=== PATIENT | male | born 1985 | race Caucasian/White ===

== ENCOUNTER 2016-05-28 18:56 | Emergency (ER) | payer SELFPAY ==
--- NOTE | 2016-05-28 19:43 | DIAGNOSTIC IMAGING REPORT ---
PROCEDURE: CT HEAD WITHOUT CONTRAST INDICATION: TRAUMA/INJURY TECHNIQUE: Noncontrast axial images with sagittal and coronal reformations. COMPARISON: None. FINDINGS: Sulci, ventricular system, and brain parenchyma are normal. Posterior scalp contusion. No evidence of acute intracranial process. Bilateral ethmoid and maxillary sinus disease. Mastoid are clear. IMPRESSION: 1. Posterior scalp contusion 2. No acute intracranial abnormality 3. Sinus disease 4. Findings discussed with Dr. Jordan at 07:41 p.m., [place] Standard Time
--- NOTE | 2016-05-28 20:46 | ED CLINICAL REPORT ---
Clinical Report - Physicians/Mid Levels [facility] [address] [place] [address] 05/28/2016 19:00 Patient: JONG DE JESUS Arrived- By private vehicle. Historian- patient. HISTORY OF PRESENT ILLNESS Chief Complaint: FALL and INJURY TO HEAD. The injury occurred just prior to arrival. Fell 8-10 feet off a ladder while climbing and landed on the ground. Occurred at home. The patient complains of moderate pain in the head. The patient sustained a moderate blow to the head, had brief loss of consciousness and was dazed. No neck pain or seizure. REVIEW OF SYSTEMS No numbness, dizziness, loss of vision, hearing loss or difficulty breathing. No weakness, nausea, abdominal pain, laceration or vomiting. No urinary problems. He has had a headache. All systems otherwise negative, except as recorded above. PAST HISTORY concussion. Surgeries: No history of previous surgery. Additional Surgeries: no known surgeries. Medications: Ibuprofen Oral, as needed. Allergies: No Known Drug Allergy. SOCIAL HISTORY Current every day smoker. Occasional alcohol use. History of drug use: marijuana. ADDITIONAL NOTES The nursing notes have been reviewed with agreement regarding the chief complaint, PMH and patient medications and allergies. PHYSICAL EXAM Vital Signs: 05/28/2016 19:04 BP: 147/84. HR: 82. RR: 22. O2 saturation: 100%. Temp: 97.9 F. Have been reviewed. Hypertensive. Heart rate normal. Tachypneic. Temperature normal. Oxygen saturation normal. Appearance: C-collar in place. Alert. Oriented X3. No acute distress. Head: No Carcamo's sign or raccoon eyes. Vertex: mild tenderness and swelling. No laceration. Eyes: Pupils equal, round and reactive to light. EOM intact. ENT: No dental injury. Pharynx normal. Neck: Painless ROM. Non-tender. CVS: Heart sounds normal. Pulses normal. Respiratory: Breath sounds normal. Chest nontender. Abdomen: No visible injury. Soft and nontender. Bowel sounds normal. Back: No tenderness. ROM normal. Skin: Skin intact. Skin warm and dry. Extremities: Normal inspection. Pelvis stable. Extremities atraumatic. Neuro: [place] Coma Scale: 15- eyes open spontaneously (4); best verbal response- oriented x 3 (5); best motor response- obeys commands (6). Oriented X 3. No motor deficit. No sensory deficit. LABS, X-RAYS, AND EKG CT Head: (1. Posterior scalp contusion 2. No acute intracranial abnormality 3. Sinus disease). Head CT performed without contrast. Prior studies were not available for comparison. The study was interpreted by the radiologist and discussed with the radiologist. PROGRESS AND PROCEDURES C-Spine Status: Cervical spine cleared by history and physical exam. Patient alert and oriented times three and does not appear intoxicated. No distracting injury present. No complaint of neck pain. There is no neurological deficit or point tenderness on examination. Full cervical spine range of motion without pain. Disposition: Discharged home in good condition. Condition: good. CLINICAL IMPRESSION Concussion. Loss of consciousness for a few seconds. No memory loss, confusion, altered mental status, seizure, neurological deficit or coma. INSTRUCTIONS Your Current Medications: CONTINUE TAKING THE FOLLOWING MEDICATIONS: Ibuprofen Oral : prn. Follow-up: Follow up with your doctor in about three days. Call for an appointment. Screening today revealed the patient's blood pressure to be in the pre-hypertensive range. The patient should follow up with a primary care provider for blood pressure management. (Electronically signed by Edgar Jordan Dr. 05/28/2016 22:18)
--- NOTE | 2016-05-28 20:46 | ED ORDER SUMMARY ---
..... Patient: JONG DE JESUS OrderSheet [facility] VisitID: [id number] [place] [address] 30y, M Registration Date/Time: 05/28/2016 ORDER SHEET Weight: 122.4 kg (stated) Allergies: No Known Drug Allergy GENERAL ORDERS: CT Head wo Cont Urgent (19:20 05/28/2016 Anjelica Barr) (Ack 19:24 RKaruga) (19:28 MCampbell) MEDICATION ORDERS: IV FLUIDS: IV Saline Lock (23:53 05/28/2016 Gala Barahona verbal order read back to Anjelica Barr) (Ack 23:53 Gala Barahona) ORDER SHEET NOTES: [Electronically signed by Edgar Jordan Dr. (22:18 05/28/2016)] [Electronically signed by Stephanie Monsivais R.N. (23:54 05/28/2016)] [Electronically signed by Stephanie Monsivais R.N. (23:55 05/28/2016)] [Electronically signed by Stephanie Monsivais R.N. (23:55 05/28/2016)] [Electronically signed by Stephanie Monsivais R.N. (23:56 05/28/2016)] [Electronically signed by Stephanie Monsivais R.N. (23:58 05/28/2016)] [Electronically locked/signed by Stephanie Monsivais R.N. (23:54 05/28/2016)]
--- NOTE | 2016-05-28 20:46 | ED CLINICAL REPORT ---
Clinical Report - Physicians/Mid Levels [facility] [address] [place] [address] 05/28/2016 19:00 Patient: JONG DE JESUS Arrived- By private vehicle. Historian- patient. HISTORY OF PRESENT ILLNESS Chief Complaint: FALL and INJURY TO HEAD. The injury occurred just prior to arrival. Fell 8-10 feet off a ladder while climbing and landed on the ground. Occurred at home. The patient complains of moderate pain in the head. The patient sustained a moderate blow to the head, had brief loss of consciousness and was dazed. No neck pain or seizure. REVIEW OF SYSTEMS No numbness, dizziness, loss of vision, hearing loss or difficulty breathing. No weakness, nausea, abdominal pain, laceration or vomiting. No urinary problems. He has had a headache. All systems otherwise negative, except as recorded above. PAST HISTORY concussion. Surgeries: No history of previous surgery. Additional Surgeries: no known surgeries. Medications: Ibuprofen Oral, as needed. Allergies: No Known Drug Allergy. SOCIAL HISTORY Current every day smoker. Occasional alcohol use. History of drug use: marijuana. ADDITIONAL NOTES The nursing notes have been reviewed with agreement regarding the chief complaint, PMH and patient medications and allergies. PHYSICAL EXAM Vital Signs: 05/28/2016 19:04 BP: 147/84. HR: 82. RR: 22. O2 saturation: 100%. Temp: 97.9 F. Have been reviewed. Hypertensive. Heart rate normal. Tachypneic. Temperature normal. Oxygen saturation normal. Appearance: C-collar in place. Alert. Oriented X3. No acute distress. Head: No Carcamo's sign or raccoon eyes. Vertex: mild tenderness and swelling. No laceration. Eyes: Pupils equal, round and reactive to light. EOM intact. ENT: No dental injury. Pharynx normal. Neck: Painless ROM. Non-tender. CVS: Heart sounds normal. Pulses normal. Respiratory: Breath sounds normal. Chest nontender. Abdomen: No visible injury. Soft and nontender. Bowel sounds normal. Back: No tenderness. ROM normal. Skin: Skin intact. Skin warm and dry. Extremities: Normal inspection. Pelvis stable. Extremities atraumatic. Neuro: [place] Coma Scale: 15- eyes open spontaneously (4); best verbal response- oriented x 3 (5); best motor response- obeys commands (6). Oriented X 3. No motor deficit. No sensory deficit. LABS, X-RAYS, AND EKG CT Head: (1. Posterior scalp contusion 2. No acute intracranial abnormality 3. Sinus disease). Head CT performed without contrast. Prior studies were not available for comparison. The study was interpreted by the radiologist and discussed with the radiologist. PROGRESS AND PROCEDURES C-Spine Status: Cervical spine cleared by history and physical exam. Patient alert and oriented times three and does not appear intoxicated. No distracting injury present. No complaint of neck pain. There is no neurological deficit or point tenderness on examination. Full cervical spine range of motion without pain. Disposition: Discharged home in good condition. Condition: good. CLINICAL IMPRESSION Concussion. Loss of consciousness for a few seconds. No memory loss, confusion, altered mental status, seizure, neurological deficit or coma. INSTRUCTIONS Your Current Medications: CONTINUE TAKING THE FOLLOWING MEDICATIONS: Ibuprofen Oral : prn. Follow-up: Follow up with your doctor in about three days. Call for an appointment. Screening today revealed the patient's blood pressure to be in the pre-hypertensive range. The patient should follow up with a primary care provider for blood pressure management. (Electronically signed by Edgar Jordan Dr. 05/28/2016 22:18)
--- NOTE | 2016-05-28 20:46 | ED NURSING NOTES ---
Clinical Report - Nurses [facility] [place] [address] 05/28/2016 19:00 Patient: JONG DE JESUS TRIAGE Weight: 122.4 kg stated. Height/Length: 74 inches Per Patient. BMI: 34.7. --19:09 Stephanie Monsivais R.N. Medications Ibuprofen Oral, as needed. --19:07 Stephanie Monsivais R.N. Medication/allergy information source: the patient. --19:10 Stephanie Monsivais R.N. Allergies No Known Drug Allergy. --19:08 Stephanie Monsivais R.N. PROBLEMS: Concussion. --19:08 Stephanie Monsivais R.N. Major Trauma History Triage time 19:05. Arrived via (girl friend dropped off). Historian: patient. Acuity: LEVEL 2. Mechanism of injury: FALL 8-10 feet while walking and landed on a concrete surface. Location of injuries: occiput, chin and lower back. Occurred approximately 1 hour prior to arrival. Trauma team: (19:05). Treatment SOLE CONDITIONER: C-collar applied. Trauma activation: Modified Trauma Activation. PAST MEDICAL HX: ( Pt. states he took Ibuprofen SOLE CONDITIONER for a CHAN oc 02/15). SURGERY HX: No history of previous surgery. SOCIAL HX: Heavy tobacco smoker (cigarette)- 1 pack per day. Occasional alcohol use. History of drug use: marijuana. (daily. 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 Identification band on patient. ARTEMIO COMA SCORE: [place] Coma Scale: 15- eyes open spontaneously (4); best verbal response- oriented x 4 (5); best motor response- obeys commands (6). --19:10 Stephanie Monsivais R.N. 19:05. --23:58 Stephanie Monsivais R.N. Primary Survey: Alert. No acute distress. Airway patent. Breathing spontaneous. Pulses present. Skin color within normal limits and warm and dry to touch. No external bleeding present. C-spine immobolized. Patient alert. Pupillary exam: pupils are equal, round, and reactive to light. Warming measures performed. SEPSIS SCREEN: Sepsis Screen. Negative (no infection suspected/documented). --19:10 Stephanie Monsivais R.N. 19:04 05/28/16. BP: 147/84. HR: 82. RR: 22. O2 saturation: 100%. Temp: 97.9 F. Pain level now 6/10. --19:10 Stephanie Monsivais R.N. ( Pt. states he was up on a ladder about 9 feet in the air when he fell off. He hit his head on the concrete. He did have LOC for about 30 sec. He said felt "funny" afterwards and "dizzy" also had a 10/10 headache. He just wants to, "get checked out to make sure everything is ok."). --19:30 Stephanie Monsivais R.N. PHYSICAL ASSESSMENT Secondary Survey: GENERAL / NEURO / PSYCH: Alert. Oriented X 4. Appears in no acute distress. HEENT: Head exam within normal limits. RESPIRATORY: Respirations not labored. CHEST / CVS: Normal sinus rhythm noted. CVS: Capillary refill less than 2 seconds. ABD / PELVIS / GI / : Abdomen soft and nontender. EXTREMITIES: Neuro-vascular status intact to the extremity. SKIN: Skin intact. --19:12 Stephanie Monsivais R.N. NURSING PROGRESS NOTES 19:12 05/28/2016 Site #1 started via IV in the right antecubital space with an 18g angiocath; one attempt. Blood drawn: rainbow set. Labeled in the presence of the patient and sent to the lab. Saline lock flushed with 10 mL saline. --19:12 Stephanie Monsivais R.N. monitoring manager, pulse oximeter and NIBP monitor placed on patient; ekg monitor- Lead II; monitor alarms on. Two patient identifiers checked. Call light placed in reach. Side rails up x 2. Bed placed in lowest position. Brakes of bed on. Patient ready for evaluation- chart flagged. --19:13 Stephanie Monsivais R.N. Warming measures: warm blanket applied. --19:13 Stephanie Monsivais R.N. Patient transported to radiology by stretcher with tech. --19:27 Stephanie Monsivais R.N. 19:45. Patient returned from radiology by stretcher with tech. --20:03 Stephanie Monsivais R.N. Patient and family informed about reason for wait and about plan of care. --20:30 Stephanie Monsivais R.N. 20:29 05/28/16. BP: 128/58. HR: 64. RR: 14. O2 saturation: 98%. Pain level now: 07/16. --20:30 Stephanie Monsivais R.N. DISPOSITION / DISCHARGE Departure time: 2100. ( 20:29 05/28/16. BP: 128/58. HR: 64. RR: 14. O2 saturation: 98%. Pain level now: 07/16. 20:30 Stephanie Monsivais R.N.). No learning barriers present. Discharge instructions provided and reviewed with the patient. Reviewed referral to family practice. Patient verbalized understanding. Written instructions provided in [place]an. The patient was discharged home and accompanied by car mover. He left the Emergency Department ambulatory and via private vehicle. Safety Instructor driving. Medication list reviewed and validated. --23:52 Stephanie Monsivais R.N. 23:50 05/28/16. RR: 16. --23:52 Stephanie Monsivais R.N. ( all discharge vitals and teaching done at 2100). --23:55 Stephanie Monsivais R.N. Locked/Released at 05/28/2016 23:58 by Stephanie Monsivais R.N.
--- NOTE | 2016-05-28 20:46 | ED NURSING NOTES ---
Clinical Report - Nurses [facility] [place] [address] 05/28/2016 19:00 Patient: JONG DE JESUS TRIAGE Weight: 122.4 kg stated. Height/Length: 74 inches Per Patient. BMI: 34.7. --19:09 Stephanie Monsivais R.N. Medications Ibuprofen Oral, as needed. --19:07 Stephanie Monsivais R.N. Medication/allergy information source: the patient. --19:10 Stephanie Monsivais R.N. Allergies No Known Drug Allergy. --19:08 Stephanie Monsivais R.N. PROBLEMS: Concussion. --19:08 Stephanie Monsivais R.N. Major Trauma History Triage time 19:05. Arrived via (girl friend dropped off). Historian: patient. Acuity: LEVEL 2. Mechanism of injury: FALL 8-10 feet while walking and landed on a concrete surface. Location of injuries: occiput, chin and lower back. Occurred approximately 1 hour prior to arrival. Trauma team: (19:05). Treatment RESUME SPECIALIST: C-collar applied. Trauma activation: Modified Trauma Activation. PAST MEDICAL HX: ( Pt. states he took Ibuprofen RESUME SPECIALIST for a CHAN oc 02/15). SURGERY HX: No history of previous surgery. SOCIAL HX: Heavy tobacco smoker (cigarette)- 1 pack per day. Occasional alcohol use. History of drug use: marijuana. (daily. 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 Identification band on patient. ARTEMIO COMA SCORE: [place] Coma Scale: 15- eyes open spontaneously (4); best verbal response- oriented x 4 (5); best motor response- obeys commands (6). --19:10 Stephanie Monsivais R.N. 19:05. --23:58 Stephanie Monsivais R.N. Primary Survey: Alert. No acute distress. Airway patent. Breathing spontaneous. Pulses present. Skin color within normal limits and warm and dry to touch. No external bleeding present. C-spine immobolized. Patient alert. Pupillary exam: pupils are equal, round, and reactive to light. Warming measures performed. SEPSIS SCREEN: Sepsis Screen. Negative (no infection suspected/documented). --19:10 Stephanie Monsivais R.N. 19:04 05/28/16. BP: 147/84. HR: 82. RR: 22. O2 saturation: 100%. Temp: 97.9 F. Pain level now 6/10. --19:10 Stephanie Monsivais R.N. ( Pt. states he was up on a ladder about 9 feet in the air when he fell off. He hit his head on the concrete. He did have LOC for about 30 sec. He said felt "funny" afterwards and "dizzy" also had a 10/10 headache. He just wants to, "get checked out to make sure everything is ok."). --19:30 Stephanie Monsivais R.N. PHYSICAL ASSESSMENT Secondary Survey: GENERAL / NEURO / PSYCH: Alert. Oriented X 4. Appears in no acute distress. HEENT: Head exam within normal limits. RESPIRATORY: Respirations not labored. CHEST / CVS: Normal sinus rhythm noted. CVS: Capillary refill less than 2 seconds. ABD / PELVIS / GI / : Abdomen soft and nontender. EXTREMITIES: Neuro-vascular status intact to the extremity. SKIN: Skin intact. --19:12 Stephanie Monsivais R.N. NURSING PROGRESS NOTES 19:12 05/28/2016 Site #1 started via IV in the right antecubital space with an 18g angiocath; one attempt. Blood drawn: rainbow set. Labeled in the presence of the patient and sent to the lab. Saline lock flushed with 10 mL saline. --19:12 Stephanie Monsivais R.N. threat monitoring analyst, pulse oximeter and NIBP monitor placed on patient; secured entrance monitor- Lead II; monitor alarms on. Two patient identifiers checked. Call light placed in reach. Side rails up x 2. Bed placed in lowest position. Brakes of bed on. Patient ready for evaluation- chart flagged. --19:13 Stephanie Monsivais R.N. Warming measures: warm blanket applied. --19:13 Stephanie Monsivais R.N. Patient transported to radiology by stretcher with tech. --19:27 Stephanie Monsivais R.N. 19:45. Patient returned from radiology by stretcher with tech. --20:03 Stephanie Monsivais R.N. Patient and family informed about reason for wait and about plan of care. --20:30 Stephanie Monsivais R.N. 20:29 05/28/16. BP: 128/58. HR: 64. RR: 14. O2 saturation: 98%. Pain level now: 07/16. --20:30 Stephanie Monsivais R.N. DISPOSITION / DISCHARGE Departure time: 2100. ( 20:29 05/28/16. BP: 128/58. HR: 64. RR: 14. O2 saturation: 98%. Pain level now: 07/16. 20:30 Stephanie Monsivais R.N.). No learning barriers present. Discharge instructions provided and reviewed with the patient. Reviewed referral to family practice. Patient verbalized understanding. Written instructions provided in Pakistani. The patient was discharged home and accompanied by linseed oil order filler. He left the Emergency Department ambulatory and via private vehicle. Mental Health Technician driving. Medication list reviewed and validated. --23:52 Stephanie Monsivais R.N. 23:50 05/28/16. RR: 16. --23:52 Stephanie Monsivais R.N. ( all discharge vitals and teaching done at 2100). --23:55 Stephanie Monsivais R.N. Locked/Released at 05/28/2016 23:58 by Stephanie Monsivais R.N.
--- NOTE | 2016-05-28 20:46 | ED ORDER SUMMARY ---
..... Patient: JONG DE JESUS OrderSheet [facility] VisitID: [id number] [place] [address] 30y, M Registration Date/Time: 05/28/2016 ORDER SHEET Weight: 122.4 kg (stated) Allergies: No Known Drug Allergy GENERAL ORDERS: CT Head wo Cont Urgent (19:20 05/28/2016 Anjelica Barr) (Ack 19:24 RKaruga) (19:28 MCampbell) MEDICATION ORDERS: IV FLUIDS: IV Saline Lock (23:53 05/28/2016 Gala Barahona verbal order read back to Anjelica Barr) (Ack 23:53 Gala Barahona) ORDER SHEET NOTES: [Electronically signed by Edgar Jordan Dr. (22:18 05/28/2016)] [Electronically signed by Stephanie Monsivais R.N. (23:54 05/28/2016)] [Electronically signed by Stephanie Monsivais R.N. (23:55 05/28/2016)] [Electronically signed by Stephanie Monsivais R.N. (23:55 05/28/2016)] [Electronically signed by Stephanie Monsivais R.N. (23:56 05/28/2016)] [Electronically signed by Stephanie Monsivais R.N. (23:58 05/28/2016)] [Electronically locked/signed by Stephanie Monsivais R.N. (23:54 05/28/2016)]
--- NOTE | 2016-05-28 23:58 | ED DISCHARGE INSTRUCTIONS ---
Patient: JONG DE JESUS General Instructions [facility] VisitID: [id number] [place] [address] 30y, M Registration Date/Time: 05/28/2016 Concussion. Loss of consciousness for a few seconds. No memory loss, confusion, altered mental status, seizure, neurological deficit or coma. INSTRUCTIONS Your Current Medications: CONTINUE TAKING THE FOLLOWING MEDICATIONS: Ibuprofen Oral : prn. Follow-up: Follow up with your doctor in about three days. Call for an appointment. Screening today revealed the patient's blood pressure to be in the pre-hypertensive range. The patient should follow up with a primary care provider for blood pressure management. ADDITIONAL INFORMATION Head Injury, No Wake-Up (Adult) You have had a head injury. It does not appear serious at this time. Symptoms of a more serious problem (concussion, bruising, or bleeding in the brain) may appear later. Therefore, watch for the WARNING SIGNS listed below. Home Care: Your healthcare provider will tell you whether its okay to drive. If so, you can drive yourself home. For the next day or so, be careful when driving or using heavy machinery until you are sure you have no delayed symptoms. During the next 24 hours someone must stay with you to check for the signs below. It is not necessary to stay awake or be awakened during the night. If you have swelling of the face or scalp, apply an ice pack (ice cubes in a plastic bag, wrapped in a towel) for 20 minutes. Do this every 1-2 hours until the swelling starts to go down. Do not use aspirin or ibuprofen (Motrin, Advil) after a head injury.You may use acetaminophen (Tylenol)to control pain, unless another pain medicine was prescribed. [NOTE: If you have chronic liver or kidney disease or ever had a stomach ulcer or GI bleeding, talk with your doctor before using these medicines.] For the next 24 hours: Do not take alcohol, sedatives or medicines that make you sleepy. Avoid strenuous activities. No lifting or straining. If you have had any symptoms of a concussion today (nausea, vomiting, dizziness, confusion, headache, memory loss or if you were knocked out), do not return to sports or any activity that could result in another head injury until all symptoms are gone and you have been cleared by your doctor. A second head injury before fully recovering from the first one can lead to serious brain injury. Follow Up with your doctor if symptoms are not improving after 24 hours, or as directed. [NOTE: A radiologist will review any X-rays or CT scans that were taken. We will notify you of any new findings that may affect your care.] Get Prompt Medical Attention if any of the followingWARNING SIGNS occur: Repeated vomiting Severe or worsening headache or dizziness Unusual drowsiness, or unable to awaken as usual Confusion or change in behavior or speech, memory loss, blurred vision Convulsion (seizure) Increasing scalp or face swelling Redness, warmth or pus from the swollen area Fluid drainage or bleeding from the nose or ears You have been given the following additional information: HEAD INJURY, No Wake-Up (Adult) (Electronically signed by Edgar Jordan Dr. 05/28/2016 22:18)
--- NOTE | 2016-05-28 23:58 | ED MED RECONCILIATION SUMMARY ---
Patient: JONG DE JESUS Medication Reconciliation Report [facility] VisitID: [id number] [address] [place] [address] 30y, M Registration Date/Time: 05/28/2016 Weight: 122.4 kg Height/Length: 74 in. BMI: 34.7 ALLERGIES: No Known Drug Allergy The patient's Home Medications are listed below: CONTINUE TAKING THE FOLLOWING MEDICATIONS: Ibuprofen Oral The source(s) of the original Home Medication information: patient The following Medications were given to the patient in the Emergency Department: None. The following Medications were prescribed to the patient: None.
--- NOTE | 2016-05-28 23:58 | ED MAR SUMMARY ---
..... Medication Administration Record [facility] [address] [place], [place] [id number] Patient: JONG DE JESUS Visit ID: [id number] 30y, M Weight: 122.4 kg Height/Length: 74 in BMI: 34.7 ALLERGIES: No Known Drug Allergy
--- NOTE | 2016-05-28 23:58 | ED MAR SUMMARY ---
..... Medication Administration Record [facility] [address] [place], [place] [id number] Patient: JONG DE JESUS Visit ID: [id number] 30y, M Weight: 122.4 kg Height/Length: 74 in BMI: 34.7 ALLERGIES: No Known Drug Allergy
--- NOTE | 2016-05-28 23:58 | ED MED RECONCILIATION SUMMARY ---
Patient: JONG DE JESUS Medication Reconciliation Report [facility] VisitID: [id number] [address] [place] [address] 30y, M Registration Date/Time: 05/28/2016 Weight: 122.4 kg Height/Length: 74 in. BMI: 34.7 ALLERGIES: No Known Drug Allergy The patient's Home Medications are listed below: CONTINUE TAKING THE FOLLOWING MEDICATIONS: Ibuprofen Oral The source(s) of the original Home Medication information: patient The following Medications were given to the patient in the Emergency Department: None. The following Medications were prescribed to the patient: None.
== END 2016-05-28 21:00 | disposition home or self-care (01) ==
LOC: ED SRH 18:56
DX: S06.0X1A Concussion with loss of consciousness of 30 minutes or less, initial encounter (principal); W11.XXXA Fall on and from ladder, initial encounter; Y93.89 Activity, other specified; Y92.009 Unspecified place in unspecified non-institutional (private) residence as the place of occurrence of the external cause; Y99.9 Unspecified external cause status; F17.210 Nicotine dependence, cigarettes, uncomplicated

== ENCOUNTER 2016-07-12 15:21 | Emergency (ER) | payer OTHER ==
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
--- NOTE | 2016-07-12 18:23 | ED MAR SUMMARY ---
..... Medication Administration Record [facility] [address] [place], [place] [id number] Patient: JONG DE JESUS Visit ID: [id number] 31y, M Weight: 115.6 kg Height/Length: 74 in BMI: 32.7 ALLERGIES: None
--- NOTE | 2016-07-12 18:23 | ED MED RECONCILIATION SUMMARY ---
Patient: JONG DE JESUS Medication Reconciliation Report [facility] VisitID: [id number] [place] [address] 31y, M Registration Date/Time: 07/12/2016 Weight: 115.6 kg Height/Length: 74 in. BMI: 32.7 ALLERGIES: None The patient's Home Medications are listed below: NONE. The source(s) of the original Home Medication information: patient The following Medications were given to the patient in the Emergency Department: None. The following Medications were prescribed to the patient: Flexeril 10 mg: Take 1 orally every 8 hours as needed for muscle spasm. Dispense twenty (20). No refills. Substitution is permissible. -- Patrizia Mcfarland A.R.N.P. Ultram 50 mg tablets: take 1-2 orally every 6 hours as needed for pain. Dispense twenty (20). No refills. Substitution is permissible. -- Patrizia Mcfarland A.R.N.P.
--- NOTE | 2016-07-12 18:23 | ED MAR SUMMARY ---
..... Medication Administration Record [facility] [address] [place], [place] [id number] Patient: JONG DE JESUS Visit ID: [id number] 31y, M Weight: 115.6 kg Height/Length: 74 in BMI: 32.7 ALLERGIES: None
--- NOTE | 2016-07-12 18:23 | ED MED RECONCILIATION SUMMARY ---
Patient: JONG DE JESUS Medication Reconciliation Report [facility] VisitID: [id number] [place] [address] 31y, M Registration Date/Time: 07/12/2016 Weight: 115.6 kg Height/Length: 74 in. BMI: 32.7 ALLERGIES: None The patient's Home Medications are listed below: NONE. The source(s) of the original Home Medication information: patient The following Medications were given to the patient in the Emergency Department: None. The following Medications were prescribed to the patient: Flexeril 10 mg: Take 1 orally every 8 hours as needed for muscle spasm. Dispense twenty (20). No refills. Substitution is permissible. -- Patrizia Mcfarland A.R.N.P. Ultram 50 mg tablets: take 1-2 orally every 6 hours as needed for pain. Dispense twenty (20). No refills. Substitution is permissible. -- Patrizia Mcfarland A.R.N.P.
== END 2016-07-12 16:50 | disposition home or self-care (01) ==
LOC: ED SRH 15:21
DX: S16.1XXA Strain of muscle, fascia and tendon at neck level, initial encounter (principal); V43.62XA Car passenger injured in collision with other type car in traffic accident, initial encounter; Y93.89 Activity, other specified; Y99.8 Other external cause status; Y92.410 Unspecified street and highway as the place of occurrence of the external cause; F17.200 Nicotine dependence, unspecified, uncomplicated